=== PATIENT | female | born 1990 | race Caucasian/White ===

== ENCOUNTER 2022-08-23 14:21 | Outpatient (CLI) | payer MEDICAID, SELFPAY ==
--- NOTE | 2022-08-23 14:48 | XR_ITS ---
WS: [id number] Chest 2 views, 08/23/2022 Clinical Data: URI Comparison: None. Findings: No nodules, masses or effusions are seen. The heart is normal. The pulmonary vascularity is not increased. No pneumonia or pneumothorax is seen. There are small granulomas throughout both lung s. XR/XR chest 2V* [id number] Impression: Old granulomatous disease.
== END 2022-08-23 14:22 | disposition home or self-care (01) ==
PROVIDERS: PCP Family Medicine; Visit Provider Nurse Practitioner Family
DX: J06.9 Acute upper respiratory infection, unspecified (principal); D71 Functional disorders of polymorphonuclear neutrophils
CPT/HCPCS: 71046

== ENCOUNTER 2023-03-12 02:13 | Emergency (ER) | payer MEDICAID, SELFPAY ==
[2023-03-12] VITALS (10 sets, daily range): BP systolic 126–169; BP diastolic 76–105; PULSE 73–102; RESP 16; TEMP 36.8; O2SAT 96–99; BMI 23.5
--- NOTE | 2023-03-12 02:22 | ED_ITS ---
Documented by User: Akosua Mcfadden MD 03/12/23 02:24 HPI - Abdominal Pain General: Chief Complaint: Abdominal Pain Stated Complaint: ABD Pain Time Seen by Provider: 03/12/23 02:17 Source: patient Mode of arrival: ambulatory Limitations: no limitations History of Present Illness: 32-year-old female states she has been having abdominal pain since September she is follow-up with her PCP she been on Protonix she is post get ultrasound gallbladder tomorrow states that 2 days ago she had a tach then another 1 tonight states her pain is a 5 out of 10. She had some nausea denies any fevers. Associated Symptoms: Denies chills, diarrhea, fever(s), nausea and vomiting Review of Systems Const: Denies: fever(s), chills, body aches or change in appetite Eyes: Denies: blurry vision or eye discomfort ENMT: Denies: throat pain or dental pain Card: Denies: chest pain Resp: Denies: dyspnea GI: Reports: abdominal pain; Denies: nausea, vomiting or diarrhea Musc: Denies: neck pain or back pain Skin/Breast: Denies: rash Neuro: Denies: headache(s) Physical Exam Const: COMMON NORMALS: no acute distress, patient oriented x3 and healthy appearing HENMT: COMMON NORMALS: normocephalic and atraumatic HEAD & SCALP: normocephalic and atraumatic Eye: COMMON NORMALS: conjunctivae normal CONJUNCTIVA: Yes conjunctivae normal Neck/C-Spine: COMMON NORMALS: full ROM and supple Chest: COMMONS NORMALS: normal inspection of the chest and normal palpation of entire chest wall Resp: COMMON NORMALS: normal respiratory effort, No retractions, No use of accessory muscles and clear to auscultation bilaterally AUSCULTATION: clear to auscultation bilaterally Cardio: COMMON NORMALS: regular rate, regular rhythm and No murmurs present (Cardio) RATE: regular rate RHYTHM: regular rhythm GI: COMMON NORMALS: Normal to inspection, nondistended, normoactive bowel sounds present, Soft to palpation and no masses PALPATION: Yes Soft to palpation and Yes Tenderness to palpation present (GI) Details: RUQ Extremity: COMMON NORMALS: normal to inspection and full ROM Neuro: COMMON NORMALS: patient oriented x3, moves all extremities and no focal motor deficits Psych: COMMON NORMALS: mental status grossly normal, Normal thought process present and cooperative THOUGHT PROCESS: Normal thought process present Skin: COMMON NORMALS: no rashes or lesions noted and no wounds GENERAL SKIN EXAM: no rashes or lesions noted Course Vital Signs: Vital signs: Vital Signs Temperature 98.2 F 03/12/23 02:18 Pulse Rate 84 03/12/23 07:03 Respiratory Rate 16 03/12/23 07:03 Blood Pressure 126/84 03/12/23 07:03 Pulse Oximetry 97 03/12/23 07:03 Oxygen Delivery Me thod Room Air 03/12/23 07:03 MDM - Abdominal Pain Lab Data 03/12/23 02:25 03/12/23 02:25 Labs/Radiology: Radiology Impressions Gallbladder Ultrasound 03/12/23 02:36 IMPRESSION: 1. Mild dilation of the biliary system. Distal obstruction cannot be excluded. 2. Cholelithiasis apparent. No definite evidence of acute cholecystitis. Cholangiopancreatography MRI 03/12/23 03:36 IMPRESSION: 1. Cholelithiasis without evidence of cholecystitis. 2. No choledocholithiasis identified. Laboratory Results WBC 9.2 10^3/uL (4.0-10.0) 03/12/23 02:25 RBC 4.23 10^6/uL (4.1-5.3) 03/12/23 02:25 Hgb 12.8 g/dL (11.5-15.3) 03/12/23 02:25 Hct 37.9 % (37.0-47.0) 03/12/23 02:25 MCV 89.6 fl (81-99) 03/12/23 02:25 MCH 30.3 pg (28.0-34.0) 03/12/23 02:25 MCHC 33.8 g/dL (30.0-36.0) 03/12/23 02:25 RDW 12.5 % (12.1-15.1) 03/12/23 02:25 Plt Count 270 10^3/cmm (130-400) 03/12/23 02:25 MPV 9.4 fL (7.4-10.4) 03/12/23 02:25 Neut % (Auto) 65.5 % 03/12/23 02:25 Lymph % (Auto) 22.0 % 03/12/23 02:25 Charles % (Auto) 11.9 % 03/12/23 02:25 Eos % (Auto) 0.2 % 03/12/23 02:25 Baso % (Auto) 0.2 % 03/12/23 02:25 Neut # (Auto) 6.04 10^3/uL (1.8-7.7) 03/12/23 02:25 Lymph # (Auto) 2.0 10^3/uL (0.8-4.8) 03/12/23 02:25 Charles # (Auto) 1.1 10^3/uL (0.2-0.9) H 03/12/23 02:25 Eos # (Auto) 0.0 10^3/uL (0.0-0.8) 03/12/23 02:25 Baso # (Auto) 0.0 10^3/uL (0.0-0.1) 03/12/23 02:25 Nucleated RBC % (auto) 0 % 03/12/23 02:25 Nucleated RBCs # 0.0 /100WBC 03/12/23 02:25 Sodium 139 mmol/L (136-145) 03/12/23 02:25 Potassium 3.7 mmol/L (3.5-5.1) 03/12/23 02:25 Chloride 107 mmol/L (98-107) 03/12/23 02:25 Carbon Dioxide 21 mmol/L (22-29) L 03/12/23 02:25 Anion Gap 14.7 (5-19) 03/12/23 02:25 BUN 12 mg/dL (6-20) 03/12/23 02:25 Creatinine 0.9 mg/dL (0.5-0.9) 03/12/23 02:25 GFR Calculation 71.7 mL/min (90-130) L 03/12/23 02:25 Glucose 118 mg/dL (65-115) H 03/12/23 02:25 Calculated Osmolality 289 mOsm/kg (285-295) 03/12/23 02:25 Calcium 9.9 mg/dL (8.5-10.5) 03/12/23 02:25 Total Bilirubin 0.9 mg/dL (0.15-1.2) 03/12/23 02:25 AST 426 U/L (0-32) H 03/12/23 02:25 ALT 354 U/L (0-33) H 03/12/23 02:25 Alkaline Phosphatase 346 U/L (35-105) H 03/12/23 02:25 Total Protein 7.0 g/dL (6.6-8.7) 03/12/23 02:25 Albumin 4.5 g/dL (3.5-5.2) 03/12/23 02:25 Globulin 2.5 g/dL (1.3-4.6) 03/12/23 02:25 Lipase 44 U/L (13-60) 03/12/23 02:25 HCG, Qual Negative (Negative) 03/12/23 02:25 Urine Color Yellow (Yellow) 03/12/23 02:28 Urine Appearance Clear (CLEAR) 03/12/23 02:28 Urine pH 9 (5-7) H 03/12/23 02:28 Ur Specific [place] 1.020 (1.005-1.030) 03/12/23 02:28 Urine Protein Neg (Negative) 03/12/23 02:28 Urine Glucose (UA) Norm (Normal) 03/12/23 02:28 Urine Ketones Negative (Negative) 03/12/23 02:28 Urine Blood Neg (Negative) 03/12/23 02:28 Urine Nitrate Negative (Negative) 03/12/23 02:28 Urine Bilirubin Neg (Negative) 03/12/23 02:28 Prot Sulfosalicylic Acd Negative (Negative) 03/12/23 02:28 Urine Urobilinogen Neg mg/dL (Negative) 03/12/23 02:28 Ur Leukocyte Esterase Negative (Negative) 03/12/23 02:28 Discharge Plan Discharge Patient Disposition: Home Clinical Impression: Cholelithiasis, Biliary colic Condition: Stable Prescriptions: New amoxicillin-pot clavulanate 875-125 mg tablet 1 tab PO BID Qty: 20 0RF hydrocodone-acetaminophen 5-325 mg tablet 1 tab PO Q6H PRN (Reason: pain) Qty: 20 0RF ondansetron HCl 4 mg tablet 4 mg PO Q6H PRN (Reason: nausea and vomiting) Qty: 20 0RF No Action [place] Thyroid 120 mg tablet pantoprazole 40 mg tablet,delayed release (DR/EC) PO Discharge Orders: Discharge ED (Routine); Ordered 03/12/23 Ordered By: Trip Kaplan Referrals: Carolann Schultz MD [Primary Care Provider] - Patient Instructions: Abdominal Pain (ED), Opioid Safety, Pain Management Sign Out Sign Out Data: Patient Sign Out occurred on 03/12/23 at 06:44. Patient's care was discussed, and care was transferred from to Trip Kaplan DO. Coding Level of Care Code ED Bale Tie Machine Operator for Chg Fwd Documented by User: Trip Kaplan DO 03/12/23 08:17 HPI - Abdominal Pain General: Chief Complaint: Abdominal Pain Stated Complaint: ABD Pain Time Seen by Provider: 03/12/23 02:17 Course Vital Signs: Vital signs: Vital Signs Temperature 98.2 F 03/12/23 02:18 Pulse Rate 84 03/12/23 07:03 Respiratory Rate 16 03/12/23 07:03 Blood Pressure 126/84 03/12/23 07:03 Pulse Oximetry 97 03/12/23 07:03 Oxygen Delivery Me thod Room Air 03/12/23 07:03 MDM - Abdominal Pain Medical Decision Making Care assumed at change of shift patient is resting comfortably MRCP shows no choledocholithiasis. Patient reports she has had symptoms for several months now she has been treating as a stomach ulcer with [id number] medications. Patient be discharged home on Augmentin 875 twice daily for 10 days give hydrocodone and ondansetron. Continue the pantoprazole. Offered patient referral to general surgery here she has a been seen at [facility] in the past wishes to return to emergency in [place] she will make her own follow-up arrangements. If she has any further problems she is free to return to the emergency room at any point. Medical Records I reviewed the patient's medical records. Lab Data I reviewed the patient's lab results. 03/12/23 02:25 03/12/23 02:25 Labs/Radiology: Radiology Impressions Gallbladder Ultrasound 03/12/23 02:36 IMPRESSION: 1. Mild dilation of the biliary system. Distal obstruction cannot be excluded. 2. Cholelithiasis apparent. No definite evidence of acute cholecystitis. Cholangiopancreatography MRI 03/12/23 03:36 IMPRESSION: 1. Cholelithiasis without evidence of cholecystitis. 2. No choledocholithiasis identified. Laboratory Results WBC 9.2 10^3/uL (4.0-10.0) 03/12/23 02:25 RBC 4.23 10^6/uL (4.1-5.3) 03/12/23 02:25 Hgb 12.8 g/dL (11.5-15.3) 03/12/23 02:25 Hct 37.9 % (37.0-47.0) 03/12/23 02:25 MCV 89.6 fl (81-99) 03/12/23 02:25 MCH 30.3 pg (28.0-34.0) 03/12/23 02:25 MCHC 33.8 g/dL (30.0-36.0) 03/12/23 02:25 RDW 12.5 % (12.1-15.1) 03/12/23 02:25 Plt Count 270 10^3/cmm (130-400) 03/12/23 02:25 MPV 9.4 fL (7.4-10.4) 03/12/23 02:25 Neut % (Auto) 65.5 % 03/12/23 02:25 Lymph % (Auto) 22.0 % 03/12/23 02:25 Charles % (Auto) 11.9 % 03/12/23 02:25 Eos % (Auto) 0.2 % 03/12/23 02:25 Baso % (Auto) 0.2 % 03/12/23 02:25 Neut # (Auto) 6.04 10^3/uL (1.8-7.7) 03/12/23 02:25 Lymph # (Auto) 2.0 10^3/uL (0.8-4.8) 03/12/23 02:25 Charles # (Auto) 1.1 10^3/uL (0.2-0.9) H 03/12/23 02:25 Eos # (Auto) 0.0 10^3/uL (0.0-0.8) 03/12/23 02:25 Baso # (Auto) 0.0 10^3/uL (0.0-0.1) 03/12/23 02:25 Nucleated RBC % (auto) 0 % 03/12/23 02:25 Nucleated RBCs # 0.0 /100WBC 03/12/23 02:25 Sodium 139 mmol/L (136-145) 03/12/23 02:25 Potassium 3.7 mmol/L (3.5-5.1) 03/12/23 02:25 Chloride 107 mmol/L (98-107) 03/12/23 02:25 Carbon Dioxide 21 mmol/L (22-29) L 03/12/23 02:25 Anion Gap 14.7 (5-19) 03/12/23 02:25 BUN 12 mg/dL (6-20) 03/12/23 02:25 Creatinine 0.9 mg/dL (0.5-0.9) 03/12/23 02:25 GFR Calculation 71.7 mL/min (90-130) L 03/12/23 02:25 Glucose 118 mg/dL (65-115) H 03/12/23 02:25 Calculated Osmolality 289 mOsm/kg (285-295) 03/12/23 02:25 Calcium 9.9 mg/dL (8.5-10.5) 03/12/23 02:25 Total Bilirubin 0.9 mg/dL (0.15-1.2) 03/12/23 02:25 AST 426 U/L (0-32) H 03/12/23 02:25 ALT 354 U/L (0-33) H 03/12/23 02:25 Alkaline Phosphatase 346 U/L (35-105) H 03/12/23 02:25 Total Protein 7.0 g/dL (6.6-8.7) 03/12/23 02:25 Albumin 4.5 g/dL (3.5-5.2) 03/12/23 02:25 Globulin 2.5 g/dL (1.3-4.6) 03/12/23 02:25 Lipase 44 U/L (13-60) 03/12/23 02:25 HCG, Qual Negative (Negative) 03/12/23 02:25 Urine Color Yellow (Yellow) 03/12/23 02:28 Urine Appearance Clear (CLEAR) 03/12/23 02:28 Urine pH 9 (5-7) H 03/12/23 02:28 Ur Specific [place] 1.020 (1.005-1.030) 03/12/23 02:28 Urine Protein Neg (Negative) 03/12/23 02:28 Urine Glucose (UA) Norm (Normal) 03/12/23 02:28 Urine Ketones Negative (Negative) 03/12/23 02:28 Urine Blood Neg (Negative) 03/12/23 02:28 Urine Nitrate Negative (Negative) 03/12/23 02:28 Urine Bilirubin Neg (Negative) 03/12/23 02:28 Prot Sulfosalicylic Acd Negative (Negative) 03/12/23 02:28 Urine Urobilinogen Neg mg/dL (Negative) 03/12/23 02:28 Ur Leukocyte Esterase Negative (Negative) 03/12/23 02:28 Discharge Plan Discharge Patient Disposition: Home Clinical Impression: Cholelithiasis, Biliary colic Condition: Stable Prescriptions: New amoxicillin-pot clavulanate 875-125 mg tablet 1 tab PO BID Qty: 20 0RF hydrocodone-acetaminophen 5-325 mg tablet 1 tab PO Q6H PRN (Reason: pain) Qty: 20 0RF ondansetron HCl 4 mg tablet 4 mg PO Q6H PRN (Reason: nausea and vomiting) Qty: 20 0RF No Action [place] Thyroid 120 mg tablet pantoprazole 40 mg tablet,delayed release (DR/EC) PO Discharge Orders: Discharge ED (Routine); Ordered 03/12/23 Ordered By: Trip Kaplan Referrals: Carolann Schultz MD [Primary Care Provider] - Patient Instructions: Abdominal Pain (ED), Opioid Safety, Pain Management Sign Out Sign Out Data: Patient Sign Out occurred on 03/12/23 at 06:44. Patient's care was discussed, and care was transferred from to Trip Kaplan DO. Coding Level of Care Code ED Bale Tie Machine Operator for Kendall Pacheco
[2023-03-12 02:30] LABS: Basophils % 0.2 %; Eosinophils % 0.2 %; Hematocrit 37.9 % (37.0-47.0); Hemoglobin 12.8 g/dL (11.5-15.3); Mean Corpuscular HGB Conc 33.8 g/dL (30.0-36.0); Mean Corpuscular Hemoglobin 30.3 pg (28.0-34.0); Mean Corpuscular Volume 89.6 fl (81-99); Mean Platelet Volume 9.4 fL (7.4-10.4); Monocytes # 1.1 10^3/uL (0.2-0.9); Monocytes % 11.9 %; Neutrophils # 6.04 10^3/uL (1.8-7.7); Neutrophils % 65.5 %; Nucleated Red Blood Cells % 0 %; Platelet Count 270 10^3/cmm (130-400); Red Blood Count 4.23 10^6/uL (4.1-5.3); Red Cell Distribution Width 12.5 % (12.1-15.1); White Blood Count 9.2 10^3/uL (4.0-10.0)
[2023-03-12 02:31] LABS: Add Urine Microscopic? NO; Charge for UA Resulting for Rev
[2023-03-12] MEDS: ketorolac 30 mg/mL INJ 15 MG IVP (02:34)
--- NOTE | 2023-03-12 02:36 | USR_ITS ---
PROCEDURE INFORMATION: Exam: US Abdomen, Limited; Right Upper Quadrant Exam date and time: 03/12/2023 2:43 AM Age: 32 years old Clinical indication: Abdominal pain; Other: Intermittent, radiates to the back and ruq; Patient HX: Intermittent, epigastric, chest, back, ruq pain x 5-6 months TECHNIQUE: Imaging protocol: Real time ultrasound of the abdomen with image documentation. Limited exam focused on the right upper quadrant. COMPARISON: US OB >= 14 weeks fetus [id number] 09/09/2018 2:58 PM FINDINGS: Liver: Normal. No masses. Gallbladder: Cholelithiasis. No definite gallbladder wall thickening. Negative for pericholecystic fluid. Biliary ducts: Mildly dilated intrahepatic bile ducts. Common bile duct dilation measuring 10 mm. Pancreas: Visualized pancreas is unremarkable. Right kidney: Normal. No mass. No hydronephrosis. Portal venous: Portal venous system is patent. Normal flow direction. Intraperitoneal space: Negative for intraperitoneal fluid collection. US/US gall bladder [id number] IMPRESSION: 1. Mild dilation of the biliary system. Distal obstruction cannot be excluded. 2. Cholelithiasis apparent. No definite evidence of acute cholecystitis.
[2023-03-12 02:37] LABS: Urine Appearance Clear (CLEAR); Urine Color Yellow (Yellow)
[2023-03-12 02:38] LABS: Bilirubin Urine Neg (Negative); Blood Urine Neg (Negative); Glucose Urine UA Norm (Normal); Ketones Urine Negative (Negative); Leukocyte Esterase Urine Negative (Negative); Nitrate Urine Negative (Negative); Protein Urine Neg (Negative); Sulfosalicylic Acid Urine Negative (Negative); Urobilinogen Urine Neg (Negative); pH Urine 9 (5-7)
[2023-03-12 02:44] LABS: HCG, Serum Qual Negative (Negative)
[2023-03-12 02:53] LABS: Alanine Aminotransferase 354 U/L (0-33); Albumin Level 4.5 g/dL (3.5-5.2); Alkaline Phosphatase 346 U/L (35-105); Anion Gap 14.7 (5-19); Aspartate Amino Transferase 426 U/L (0-32); Blood Urea Nitrogen 12 mg/dL (6-20); Calcium 9.9 mg/dL (8.5-10.5); Carbon Dioxide 21 mmol/L (22-29); Chloride 107 mmol/L (98-107); Creatinine Clr Calc Pharmacy 89.2318; Globulin 2.5 g/dL (1.3-4.6); Glomerular Filtration Rate 71.7 mL/min (90-130); Glucose 118 mg/dL (65-115); Lipase 44 U/L (13-60); Osmolality Calculated 289 mOsm/kg (285-295); Potassium 3.7 mmol/L (3.5-5.1); Sodium 139 mmol/L (136-145); Total Bilirubin 0.9 mg/dL (0.15-1.2)
[2023-03-12] MEDS: piperacillin-tazobactam 3.375 GM in sodium chloride 0.9% (plus) 50 ML IV (03:35)
--- NOTE | 2023-03-12 03:36 | MRR_ITS ---
PROCEDURE INFORMATION: Exam: MR Abdomen Without Contrast, Biliary System Exam date and time: 03/12/2023 6:26 AM Age: 32 years old Clinical indication: Abdominal pain; Additional info: Abd pain TECHNIQUE: Imaging protocol: MR of the abdomen without contrast. Exam focused on the biliary system and pancreatic ducts. Routine 3D-MRCP images were acquired and processed without radiologist supervision. COMPARISON: US gall bladder [id number] 03/12/2023 2:43 AM FINDINGS: Liver: No mass. Gallbladder and bile ducts: Cholelithiasis is present. No pericholecystic inflammatory changes to suggest cholecystitis. Borderline CBD diameter, measuring up to 7 mm. No evidence of filling defect to suggest choledocholithiasis. No intrahepatic biliary ductal dilatation. Pancreas: Unremarkable. No ductal dilation. Intraperitoneal space: No fluid collection. MR/MR MRCP [id number] IMPRESSION: 1. Cholelithiasis without evidence of cholecystitis. 2. No choledocholithiasis identified.
[2023-03-12] MEDS: ondansetron 2 mg/ML SDV 2 mL 4 MG IVP (04:04)
[2023-03-12] MEDS: morphine 4 mg/mL SDV 1 mL IVP (04:04)
--- NOTE | 2023-03-12 06:23 | PC.NURSE ---
Transported to [facility] @ [id number]
== END 2023-03-12 08:21 | disposition home or self-care (01) ==
PROVIDERS: Emergency Medicine; Emergency Provider Family Medicine; PCP Family Medicine
DX: K80.20 Calculus of gallbladder without cholecystitis without obstruction (principal)
CPT/HCPCS: 74181; 76705; 80053; 81003; 83690; 84703; 85025; 96374; 96375; 99285; J1885; J2270; J2405; J2543